=== PATIENT | male | born 1965 | race Caucasian/White ===

== ENCOUNTER 2018-01-26 10:55 | Emergency (ER) | payer SELFPAY ==
[~2018-01-26] VITALS: Ht 177.8 cm; Wt 75.0 kg
[~2018-01-26 10:55] MED LIST: LORTA5 PO
[2018-01-26 11:21] VITALS: BP 142/67; PULSE 78; RESP 20; TEMP 87.9; O2SAT 98
[2018-01-26] MEDS ORDERED: PERM5CRE TOPICAL (13:29)
--- NOTE | 2018-01-26 13:33 | PD ---
HPI Chief Complaint: Skin Problem Time Seen by Provider: 13:22 Travel History International Travel<30 days: No Contact w/Intl Traveler<30days: No Traveled to known affect area: No History of Present Illness HPI 52-year-old male presents emergency department with itchy skin rash causing excoriation include in the forearms, feet and ankles, and groin region for the past several days. Patient states he may have seen bedbugs in his home. He states the itching is driving him crazy, and he has tried treating his home for bedbug infestation without improvement in his symptoms. He denies fever, chills, or other symptoms. He has no known drug allergies. PFSH Past Medical History Medical History: Denies Significant Hx Tetanus Vaccination: > 5 Years Past Surgical History Abdominal Surgery: Yes (hernia repair) Other Surgery: Yes (pelvic fracture) Social History Alcohol Use: Yes Tobacco Use: Yes Substance Use: No Allergies-Medications (Allergen,Severity, Reaction): Coded Allergies: No Known Allergies (Unverified Adverse Reaction, Unknown, 01/26/18) Reported Meds & Prescriptions Reported Meds & Active Scripts Active Permethrin Topical 5% (Permethrin) 5% Cream 1 Applic TOPICAL ONCE Review of Systems Except as stated in HPI: all other systems reviewed are Neg General / Constitutional: No: Fever Eyes: No: Visual changes HENT: No: Headaches Cardiovascular: No: Chest Pain or Discomfort Respiratory: No: Shortness of Breath Gastrointestinal: No: Abdominal Pain Genitourinary: No: Dysuria Musculoskeletal: No: Pain Skin: Positive Rash, Positive Itching, Positive Lesions (See history of present illness per) Neurologic: No: Weakness Psychiatric: No: Depression Endocrine: No: Polydipsia Hematologic/Lymphatic: No: Easy Bruising Physical Exam Narrative GENERAL: Patient appears in mild to moderate distress per SKIN: Warm and dry. Normal color. Normal turgor. Patient has linear excoriated lesions to the forearms, and groin region as well as ankles and feet. Lesions are consistent with scabies. HEAD: Atraumatic. Normocephalic. EYES: Pupils equal and round. No scleral icterus. No injection or drainage. ENT: No nasal bleeding or discharge. Mucous membranes pink and moist. Pharynx is clear. Airways patent NECK: Trachea midline. Supple and nontender per CARDIOVASCULAR: Regular rate and rhythm. RESPIRATORY: No accessory muscle use. Clear to auscultation. Breath sounds equal bilaterally. MUSCULOSKELETAL: Extremities without clubbing, cyanosis, or edema. No obvious deformities. NEUROLOGICAL: Awake and alert. No obvious cranial nerve deficits. Motor grossly within normal limits. Five out of 5 muscle strength in the arms and legs. Normal speech. PSYCHIATRIC: Appropriate mood and affect; insight and judgment normal. Data Data Last Documented VS Vital Signs Date Time Temp Pulse Resp B/P (MAP) Pulse Ox O2 Delivery O2 Flow Rate FiO2 01/26/18 11:21 87.9 78 20 142/67 (92) 98 MDM Medical Decision Making Medical Screen Exam Complete: Yes Emergency Medical Condition: Yes Differential Diagnosis Itchy rash. Excoriations. Scabies. Bedbugs. Narrative Course Patient is felt to have scabies. Patient is given permethrin cream with 1 refill to be repeated in 1 week. Information regarding scabies is given to the patient. Patient to follow-up if symptoms do not improve or worsen the next 2 weeks per Diagnosis Primary Impression: Scabies Referrals: [facility] Patient Instructions: General Instructions, Permethrin (On the skin), Scabies ( ED) Additional Instructions: Patient is felt to have scabies. Patient is given permethrin cream with 1 refill to be repeated in 1 week. Information regarding scabies is given to the patient. Patient to follow-up if symptoms do not improve or worsen the next 2 weeks per Scripts Permethrin Topical 5% (Permethrin Topical 5%) 5% Cream 1 APPLIC TOPICAL ONCE for Scabies, #1 TUBE 1 Refill Prov: Zoran Bolton MD 01/26/18 Disposition: 01 DISCHARGE HOME Condition: Stable You Arevalo Jan 26, 2018 13:33
== END 2018-01-26 19:08 | disposition home or self-care (01) ==
LOC: NEPK 10:55
DX: B86 Scabies (principal); Z72.0 Tobacco use
CPT/HCPCS: 99283